=== PATIENT | female | born 1975 | race Caucasian/White ===

== ENCOUNTER 2017-07-01 12:03 | Emergency (ER) | payer OTHER, BC ==
[~2017-07-01] VITALS: Ht 175.3 cm; Wt 72.6 kg
[~2017-07-01 12:03] MED LIST: ALPRAZOLAM0.5 MG PO; EPIPEN 2-P0.3 MG/0.3 IM; ESCITALOPRAM OX10 MG PO; HYDROXYZINE HCL25 MG PO; PREDNISONE10 MG PO; PREDNISONE20 MG PO; PROAIR HFA8.5 GM INH
== END 2017-07-01 14:20 | disposition home or self-care (01) ==
LOC: ED 12:03
DX: M65.9 Synovitis and tenosynovitis, unspecified (principal); F17.200 Nicotine dependence, unspecified, uncomplicated; Z91.018 Allergy to other foods; Z91.012 Allergy to eggs; Z79.899 Other long term (current) drug therapy
CPT/HCPCS: 99282

== ENCOUNTER 2019-06-19 15:19 | Emergency (ER) | payer BC ==
[~2019-06-19] VITALS: Ht 175.3 cm; Wt 74.8 kg
[2019-06-19] MEDS ORDERED: PREDNISONE20 MG PO (18:44)
== END 2019-06-19 19:10 | disposition home or self-care (01) ==
LOC: ED 15:19
DX: T78.1XXA Other adverse food reactions, not elsewhere classified, initial encounter (principal); F32.9 Major depressive disorder, single episode, unspecified; F41.9 Anxiety disorder, unspecified; J45.909 Unspecified asthma, uncomplicated; F43.10 Post-traumatic stress disorder, unspecified; F17.200 Nicotine dependence, unspecified, uncomplicated; Z91.012 Allergy to eggs; Z91.018 Allergy to other foods; Z79.899 Other long term (current) drug therapy
CPT/HCPCS: 96374; 96375; 99283-25; J2930